=== PATIENT | female | born 1955 | race African-American/Black ===

== ENCOUNTER 2016-05-31 20:37 | Emergency (ER) | payer MEDICAID ==
--- NOTE | 2016-05-31 21:45 | ER Document Report ---
ED Medical Screen (RME) - General Stated Complaint: ABDOMINAL PAIN Notes: 60 yo female c/o abdominal pain x 3 weeks. + n/v. feels weak. no fever. no diarrhea. no previous hx/o similar pain. + hx/o HTN TRAVEL OUTSIDE OF THE [place] IN LAST 30 DAYS: No - Related Data Allergies/Adverse Reactions: No Known Allergies Allergy (Verified 05/24/15 13:51) Past Medical History - Past Medical History Cardiac Medical History: Reports: Hx Hypercholesterolemia, Hx Hypertension Pulmonary Medical History: Reports: Hx Asthma, Hx Pneumonia - Years Ago Neurological Medical History: Reports: Hx Migraine, Hx Seizures - None since 1986/No meds GI Medical History: Reports: Hx Gastroesophageal Reflux Disease Musculoskeltal Medical History: Reports Hx Arthritis, Reports Hx Musculoskeletal Deformity, Reports Hx Musculoskeletal Trauma Skin Medical History: Reports Hx MRSA Traumatic Medical History: Reports: Hx Fractures - ankle hand knee Infectious Medical History: Reports: Hx MRSA Past Surgical History: Reports: Hx Hysterectomy, Hx Orthopedic Surgery - left knee - Immunizations Immunizations up to date: Yes Hx Diphtheria, Pertussis, Tetanus Vaccination: Yes Physical Exam - Vital signs Vitals: Temp Pulse BP Pulse Ox 97.8 F 70 120/92 H 99 05/31/16 20:46 05/31/16 20:46 05/31/16 20:46 05/31/16 20:46 Course - Vital Signs Vital signs: Temp Pulse Resp BP Pulse Ox 97.8 F 70 120/92 H 99 05/31/16 20:46 05/31/16 20:46 05/31/16 20:46 05/31/16 20:46
[2016-05-31 22:26] LABS: ABSOLUTE BASOPHILS # (AUTO) 0.1 10^3/uL (0.0-0.2); ABSOLUTE EOSINOPHILS # (AUTO) 0.1 10^3/uL (0.0-0.6); ABSOLUTE LYMPHOCYTES (AUTO) 1.6 10^3/uL (0.5-4.7); ABSOLUTE MONOCYTES (AUTO) 0.5 10^3/uL (0.1-1.4); ABSOLUTE NEUT (AUTO) 2.6 10^3/uL (1.7-8.2); BASOPHILS % (AUTO) 1.1 % (0-2); HEMATOCRIT 38.5 % (36.0-47.0); HEMOGLOBIN 12.4 g/dL (12.0-15.5); HGB HCT DIFFERENCE -1.3; LYMPHOCYTES % (AUTO) 32.6 % (13-45); MEAN CORPUSCULAR HEMOGLOBIN 29.8 pg (27.0-33.4); MEAN CORPUSCULAR HGB CONC 32.1 g/dL (32.0-36.0); MEAN CORPUSCULAR VOLUME 93 fl (80-97); MONOCYTES % (AUTO) 10.3 % (3-13); RED BLOOD COUNT 4.15 10^6/uL (3.72-5.28); RED CELL DISTRIBUTION WIDTH 13.2 % (11.5-14.0); WHITE BLOOD COUNT 4.9 10^3/uL (4.0-10.5)
[2016-05-31 22:40] LABS: APPEARANCE,URINE SLIGHTLY-CLOUDY; BILIRUBIN,URINE NEGATIVE (NEGATIVE); GLUCOSE, URINE NEGATIVE (NEGATIVE); KETONES,URINE NEGATIVE (NEGATIVE); LEUKOCYTE ESTERASE,URINE SMALL (NEGATIVE); NITRITE,URINE NEGATIVE (NEGATIVE); PROTEIN,URINE NEGATIVE (NEGATIVE); URINE SPECIFIC GRAVITY 1.023; UROBILINOGEN,URINE NEGATIVE mg/dL (<2.0)
[2016-05-31 22:42] LABS: ALANINE AMINOTRANSFERASE 32 U/L (9-52); ALBUMIN 4.4 g/dL (3.5-5.0); ALKALINE PHOSPHATASE 67 U/L (38-126); ANION GAP 10 (5-19); ASPARTATE AMINO TRANSFERASE 25 U/L (14-36); BILIRUBIN,TOTAL 0.9 mg/dL (0.2-1.3); BLOOD UREA NITROGEN 24 mg/dL (7-20); CALCIUM 9.6 mg/dL (8.4-10.2); CARBON DIOXIDE 27 mmol/L (22-30); CHLORIDE 100 mmol/L (98-107); CREATININE RESULT 0.82 mg/dL (0.52-1.25); GLUCOSE 88 mg/dL (75-110); LIPASE 106.8 U/L (23-300); POTASSIUM 4.3 mmol/L (3.6-5.0); SODIUM 136.9 mmol/L (137-145); TOTAL PROTEIN 7.2 g/dL (6.3-8.2)
[2016-06-01] MEDS ORDERED: LIDOCAINE 2% VISCOUS SOLN 20 ML UDCUP PO ONE (00:38)
[2016-06-01] MEDS ORDERED: MAG HYDROX/AL HYDROX/SIMETH SUSP 30 ML UDCUP PO ONE (00:38)
[2016-06-01] MEDS ORDERED: METOCLOPRAMIDE HCL ORAL SOLN 10 MG/10 ML UDCUP PO ONE (00:38)
[2016-06-01 01:06] VITALS: BP 127/95
[2016-06-01] MEDS ORDERED: ONDANSETRON ODT 4 MG TAB (6 TAB/DSPK) PO PRN (02:49)
[2016-06-01] MEDS ORDERED: ONDANSETRON 4 MG TAB.RAPDIS PO ONE (02:49)
[2016-06-01] MEDS ORDERED: DICYCLOMINE HCL 20 MG TABLET PO ONE (02:49)
--- NOTE | 2016-06-01 02:53 | ER Document Report ---
ED GI/ - General Chief Complaint: Abdominal Pain Stated Complaint: ABDOMINAL PAIN Mode of Arrival: Ambulatory Information source: Patient Notes: Patient is a 60-year-old female who presents to the ER today for 2 weeks of abdominal pain in the middle of her abdomen that causes her to be nauseated and vomit. Patient states that she's been trying [id number] Mylanta and antacids at home which did not help. She states that she's even changed her diet from fried food to healthier foods and she is still having the pain and nausea. She states that she vomits approximately once per day. She has not seen her primary care provider about this yet. She denies any fever, chills, diarrhea, states that she's been having normal bowel movements. TRAVEL OUTSIDE OF THE [place] IN LAST 30 DAYS: No - Related Data Allergies/Adverse Reactions: No Known Allergies Allergy (Verified 05/24/15 13:51) Past Medical History - General Information source: Patient - Social History Smoking Status: Former Smoker Chew tobacco use (# tins/day): No Frequency of alcohol use: Rare Drug Abuse: None Family History: Reviewed & Not Pertinent Patient has suicidal ideation: No Patient has homicidal ideation: No - Past Medical History Cardiac Medical History: Reports: Hx Hypercholesterolemia, Hx Hypertension Pulmonary Medical History: Reports: Hx Asthma, Hx Pneumonia - Years Ago Neurological Medical History: Reports: Hx Migraine, Hx Seizures - None since 1986/No meds Renal/ Medical History: Denies: Hx Peritoneal Dialysis GI Medical History: Reports: Hx Gastroesophageal Reflux Disease Musculoskeltal Medical History: Reports Hx Arthritis, Reports Hx Musculoskeletal Deformity, Reports Hx Musculoskeletal Trauma Skin Medical History: Reports Hx MRSA Traumatic Medical History: Reports: Hx Fractures - ankle hand knee Infectious Medical History: Reports: Hx MRSA Past Surgical History: Reports: Hx Hysterectomy, Hx Orthopedic Surgery - L knee - Immunizations Immunizations up to date: Yes Hx Diphtheria, Pertussis, Tetanus Vaccination: Yes Hx Pneumococcal Vaccination: 05/07/10 Review of Systems - Review of Systems Constitutional: No symptoms reported EENT: No symptoms reported Cardiovascular: No symptoms reported Respiratory: No symptoms reported Gastrointestinal: See HPI Genitourinary: No symptoms reported Female Genitourinary: No symptoms reported Musculoskeletal: No symptoms reported Skin: No symptoms reported Hematologic/Lymphatic: No symptoms reported Neurological/Psychological: No symptoms reported Physical Exam - Vital signs Vitals: Temp Pulse BP Pulse Ox 97.8 F 70 120/92 H 99 05/31/16 20:46 05/31/16 20:46 05/31/16 20:46 05/31/16 20:46 - Notes Notes: PHYSICAL EXAMINATION: GENERAL: Well-appearing and in no acute distress. HEAD: Atraumatic, normocephalic. EYES: Pupils equal round and reactive to light, extraocular movements intact, sclera anicteric, conjunctiva are normal. NECK: Normal range of motion, supple without lymphadenopathy LUNGS: CTAB and equal. No wheezes rales or rhonchi. HEART: Regular rate and rhythm without murmurs ABDOMEN: Soft, mild epigastric, periumbilical tenderness. No guarding, no rebound BACK: no vertebral tenderness, normal ROM GI/: no CVA tenderness EXTREMITIES: Normal range of motion, no pitting edema. No cyanosis. NEUROLOGICAL: Cranial nerves grossly intact. Normal sensory/motor exams. PSYCH: Normal mood, normal affect. SKIN: Warm, Dry, normal turgor, no rashes or lesions noted Course - Re-evaluation Re-evalutation: 06/01/16 02:51 Right upper quadrant ultrasound was negative for any acute pathology. Lab work is also unremarkable today including a normal lipase and white blood cell count. When I go to check on patient she is actually eating Lays potato chips without any issues. At this time I do not know the reason exactly for her abdominal pain, however do not see anything emergent at this time and believe that she can follow-up with her primary care provider. - Vital Signs Vital signs: Temp Pulse Resp BP Pulse Ox 98.4 F 72 18 127/95 H 97 06/01/16 00:56 06/01/16 00:56 06/01/16 00:56 06/01/16 00:56 06/01/16 00:56 - Laboratory Result Diagrams: 05/31/16 21:50 05/31/16 21:50 Laboratory results interpreted by me: 05/31/16 05/31/16 21:50 21:50 Sodium 136.9 L BUN 24 H Ur Leukocyte Esterase SMALL H Discharge - Discharge Clinical Impression: Abdominal pain Qualifiers: Abdominal location: epigastric Qualified Code(s): R10.13 - Epigastric pain Nausea and vomiting Qualifiers: Vomiting type: unspecified Vomiting Intractability: non-intractable Qualified Code(s): R11.2 - Nausea with vomiting, unspecified Condition: Stable Disposition: HOME, SELF-CARE Instructions: Abdominal Pain ([facility]), Vomiting ([facility]) Additional Instructions: Return immediately for any new or worsening symptoms. Follow up with primary care provider, call tomorrow to make followup appointment. Prescriptions: Ondansetron [Zofran Odt 4 mg Tablet] 1 - 2 tab PO Q4H PRN #30 tab.rapdis PRN Reason: For Nausea/Vomiting
== END 2016-06-01 03:15 | disposition home or self-care (01) ==
LOC: ER 20:37
DX: K21.9 Gastro-esophageal reflux disease without esophagitis (principal); R10.13 Epigastric pain; R10.816 Epigastric abdominal tenderness; R10.815 Periumbilic abdominal tenderness; R11.2 Nausea with vomiting, unspecified; I10 Essential (primary) hypertension; J45.909 Unspecified asthma, uncomplicated; Z87.891 Personal history of nicotine dependence; Z86.14 Personal history of Methicillin resistant Staphylococcus aureus infection
CPT/HCPCS: 99284; 36415; 83690; 85025; 80053; 81001; 76705; J3490 ×3

== ENCOUNTER 2016-07-06 16:33 | Emergency (ER) | payer SELFPAY ==
--- NOTE | 2016-07-06 16:43 | ER Document Report ---
ED Medical Screen (RME) - General Stated Complaint: FLU LIKE SYMPTOMS Mode of Arrival: Ambulatory Information source: Patient Notes: c/o productive cough, generalized weakness, sore throat for the past 4 days. Endorses chills, diarrhea but denies fever, nausea, vomiting, chest pain or wheezing. She has tried theraflu which has not provided relief. Did get flu vaccine this year. Hx of asthma. Has neb machine at home, she has not been using. I have greeted and performed a rapid initial assessment of this patient. A comprehensive ED assessment and evaluation of the patient, analysis of test results and completion of the medical decision making process will be conducted by additional ED providers. TRAVEL OUTSIDE OF THE [place] IN LAST 30 DAYS: No - Related Data Allergies/Adverse Reactions: No Known Allergies Allergy (Verified 05/24/15 13:51) Past Medical History - Past Medical History Cardiac Medical History: Reports: Hx Hypercholesterolemia, Hx Hypertension Pulmonary Medical History: Reports: Hx Asthma, Hx Pneumonia - Years Ago Neurological Medical History: Reports: Hx Migraine, Hx Seizures - None since 1986/No meds Renal/ Medical History: Denies: Hx Peritoneal Dialysis GI Medical History: Reports: Hx Gastroesophageal Reflux Disease Musculoskeltal Medical History: Reports Hx Arthritis, Reports Hx Musculoskeletal Deformity, Reports Hx Musculoskeletal Trauma Skin Medical History: Reports Hx MRSA Traumatic Medical History: Reports: Hx Fractures - ankle hand knee Infectious Medical History: Reports: Hx MRSA Past Surgical History: Reports: Hx Hysterectomy, Hx Orthopedic Surgery - L knee - Immunizations Immunizations up to date: Yes Hx Diphtheria, Pertussis, Tetanus Vaccination: Yes Physical Exam - Vital signs Vitals: Temp Pulse Resp BP Pulse Ox 98.0 F 85 16 122/81 100 07/06/16 16:39 07/06/16 16:39 07/06/16 16:39 07/06/16 16:39 07/06/16 16:39 - Notes Notes: General: no respiratory distress, speaking in full sentences Lungs CTAB Course - Vital Signs Vital signs: Temp Pulse Resp BP Pulse Ox 98.0 F 85 16 122/81 100 07/06/16 16:39 07/06/16 16:39 07/06/16 16:39 07/06/16 16:39 07/06/16 16:39
[2016-07-06] MEDS ORDERED: TETRACAINE HCL 0.5% OPH SOLN 2 ML OS ONE (17:29)
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
[2016-07-06] MEDS ORDERED: CYCLOPENTOLATE HCL 1% OPH SOLN 2 ML OU ONE (20:16)
[2016-07-06 20:21] VITALS: BP 110/82
== END 2016-07-06 21:00 | disposition home or self-care (01) ==
LOC: ER 16:33
DX: J11.1 Influenza due to unidentified influenza virus with other respiratory manifestations (principal); H20.9 Unspecified iridocyclitis; H53.142 Visual discomfort, left eye; W50.0XXA Accidental hit or strike by another person, initial encounter; R05 Cough; J34.89 Other specified disorders of nose and nasal sinuses; R19.7 Diarrhea, unspecified; I10 Essential (primary) hypertension; R09.81 Nasal congestion; J45.909 Unspecified asthma, uncomplicated; Z87.01 Personal history of pneumonia (recurrent); Z86.14 Personal history of Methicillin resistant Staphylococcus aureus infection
CPT/HCPCS: 99283; 87070; 87880; J3490

== ENCOUNTER 2016-07-10 13:35 | Emergency (ER) | payer SELFPAY ==
--- NOTE | 2016-07-10 14:40 | ER Document Report ---
ED Medical Screen (RME) - General Stated Complaint: COUGH,DIARRHEA,VOMITING Notes: patient states 7 days ago shes had malaise, nausea with vomiting of solids only , chills and lack of appetite. Was seen on 07/06 and was d/c home. She returns today with sudden onset left chest wall pain, denies worse with cough or deep breathing. for pain she has had nyquil and acetaminophen for her pain PMH: HTN, HLD, asthma, nonsmoker -DM I have greeted and performed a rapid initial assessment of this patient. A comprehensive ED assessment and evaluation of the patient, analysis of test results and completion of the medical decision making process will be conducted by additional ED providers. TRAVEL OUTSIDE OF THE [place] IN LAST 30 DAYS: No - Related Data Allergies/Adverse Reactions: No Known Allergies Allergy (Verified 07/06/16 16:40) Past Medical History - Past Medical History Cardiac Medical History: Reports: Hx Hypercholesterolemia, Hx Hypertension Pulmonary Medical History: Reports: Hx Asthma, Hx Pneumonia - Years Ago Neurological Medical History: Reports: Hx Migraine, Hx Seizures - None since 1986/No meds Renal/ Medical History: Denies: Hx Peritoneal Dialysis GI Medical History: Reports: Hx Gastroesophageal Reflux Disease Musculoskeltal Medical History: Reports Hx Arthritis, Reports Hx Musculoskeletal Deformity, Reports Hx Musculoskeletal Trauma Skin Medical History: Reports Hx MRSA Traumatic Medical History: Reports: Hx Fractures - ankle hand knee Infectious Medical History: Reports: Hx MRSA Past Surgical History: Reports: Hx Hysterectomy, Hx Orthopedic Surgery - L knee - Immunizations Immunizations up to date: Yes Hx Diphtheria, Pertussis, Tetanus Vaccination: Yes Physical Exam - Vital signs Vitals: Temp Pulse Resp BP Pulse Ox 100.3 F 111 H 16 105/73 97 07/10/16 13:56 07/10/16 13:56 07/10/16 13:56 07/10/16 13:56 07/10/16 13:56 Course - Vital Signs Vital signs: Temp Pulse Resp BP Pulse Ox 100.3 F 111 H 16 105/73 97 07/10/16 13:56 07/10/16 13:56 07/10/16 13:56 07/10/16 13:56 07/10/16 13:56
[2016-07-10] MEDS ORDERED: ASPIRIN 81 MG TABLET, CHEWABLE PO ONE (14:41)
[2016-07-10] MEDS ORDERED: LEVOFLOXACIN 750 MG TABLET PO ONE (19:51)
--- NOTE | 2016-07-10 19:51 | ER Document Report ---
ED General - General Chief Complaint: Cough Stated Complaint: COUGH,DIARRHEA,VOMITING Time seen by provider: 19:47 Mode of Arrival: Ambulatory Information source: Patient Notes: 60-year-old female with one-week history of subjective fever chills cough productive of yellow sputum and occasional posttussive vomiting and diarrhea. She also reports 2 days of sharp left posterior chest pain with coughing or deep breathing. Patient denies earache, sore throat, anterior chest pain, abdominal pain, dysuria, hematemesis, or melena. Physical Exam: General: Alert, appears well. HEENT: Normocephalic. Atraumatic. PERRLA. Extraocular movements intact. Oropharynx clear. Neck: Supple. Non-tender. Respiratory: No respiratory distress. Mildly tachypnea. Diminished breath sounds in the left base otherwise clear to auscultation bilaterally Cardiovascular: Tachycardic and regular no murmur Abdominal: Normal Inspection. Soft, non-tender. No distension. Normal Bowel Sounds. Back: Non-tender. No deformity or step off. Extremities: Moves all four extremities. Upper extremities: Normal inspection. Non-tender. Normal color. Normal ROM. Normal temperature. Lower extremities: Normal inspection. Non-tender. No edema. Normal color. Normal ROM. Normal temperature. Neurological: Speech clear mentation normal moves all extremities well Psychological: Normal affect. Normal Mood. Skin: Warm. Dry. Normal color. TRAVEL OUTSIDE OF THE [place] IN LAST 30 DAYS: No - Related Data Allergies/Adverse Reactions: No Known Allergies Allergy (Verified 07/06/16 16:40) Past Medical History - Social History Smoking Status: Former Smoker Family History: Reviewed & Not Pertinent - Past Medical History Cardiac Medical History: Reports: Hx Hypercholesterolemia, Hx Hypertension Pulmonary Medical History: Reports: Hx Asthma, Hx Pneumonia - Years Ago Neurological Medical History: Reports: Hx Migraine, Hx Seizures - None since 1986/No meds Renal/ Medical History: Denies: Hx Peritoneal Dialysis GI Medical History: Reports: Hx Gastroesophageal Reflux Disease Musculoskeltal Medical History: Reports Hx Arthritis, Reports Hx Musculoskeletal Deformity, Reports Hx Musculoskeletal Trauma Skin Medical History: Reports Hx MRSA Traumatic Medical History: Reports: Hx Fractures - ankle hand knee Infectious Medical History: Reports: Hx MRSA Past Surgical History: Reports: Hx Hysterectomy, Hx Orthopedic Surgery - L knee - Immunizations Immunizations up to date: Yes Hx Diphtheria, Pertussis, Tetanus Vaccination: Yes Hx Pneumococcal Vaccination: 05/07/10 Review of Systems - Review of Systems Constitutional: See HPI EENT: See HPI Cardiovascular: See HPI Respiratory: See HPI Gastrointestinal: See HPI Genitourinary: denies: Burning, Dysuria Female Genitourinary: denies: Post menopausal Musculoskeletal: See HPI Hematologic/Lymphatic: denies: Swollen glands Neurological/Psychological: denies: Weakness, Numbness Physical Exam - Vital signs Vitals: Temp Pulse Resp BP Pulse Ox 100.3 F 111 H 16 105/73 97 07/10/16 13:56 07/10/16 13:56 07/10/16 13:56 07/10/16 13:56 07/10/16 13:56 Course - Re-evaluation Re-evalutation: 07/10/16 19:49 Patient has left lower lobe pneumonia. She is oxygenating well on room air and mildly tachycardic consistent with her fever. She was discharged on Levaquin. She reports a history of asthma but doesn't feel she is having an asthma exacerbation now reports she does have enough medication for her nebulizer she is in between doctors as she used to see a Dr. Crystal and will provide her with outpatient follow-up physician. She is also instructed to return to emergency Department for worse difficulty breathing or other problems - Vital Signs Vital signs: Temp Pulse Resp BP Pulse Ox 100.3 F 111 H 16 105/73 97 07/10/16 13:56 07/10/16 13:56 07/10/16 13:56 07/10/16 13:56 07/10/16 13:56 - Diagnostic Test Radiology reviewed: Image reviewed, Reports reviewed - EKG Interpretation by Me Additional EKG results interpreted by me: 07/10/16 19:49 EKG review, so shows sinus tachycardia 121 no acute changes Discharge - Discharge Clinical Impression: Pneumonia Qualifiers: Pneumonia type: due to unspecified organism Laterality: left Lung location: lower lobe of lung Qualified Code(s): J18.1 - Lobar pneumonia, unspecified organism Condition: Stable Disposition: HOME, SELF-CARE Additional Instructions: Pneumonia Your examination indicates that you have pneumonia. This is an infection of the lung tissue, usually caused by bacteria or a virus. Symptoms include cough, fever, shaking chills, chest pain, shortness of breath, and coughing up bloody sputum. Treatment for bacterial pneumonia includes rest, antibiotics for 10 to 14 days, increasing your clear liquid intake, a cool mist humidifier at your bedside, and fever medication. Often, a repeat chest X-ray is performed in a few weeks--even if you feel better--to ascertain whether the infection has completely resolved and no underlying lung problem is present. You should call the physician if you develop persistent vomiting, high fever that does not respond to fever medication, increasing shortness of breath , confusion, or lethargy. Also, failure to improve within two to three days is an indication for re-examination. Use your albuterol nebulizer every 3 hours as needed for shortness of breath Prescriptions: Levofloxacin [Levaquin 750 mg Tablet] 750 mg PO DAILY #9 tablet Referrals: CHOLO CRYSTAL MD [Primary Care Provider] - Follow up as needed TRAVIS ISSA MD [ACTIVE STAFF] - Follow up in 1 week
[2016-07-10 20:12] VITALS: BP 116/65
--- NOTE | 2016-07-10 20:48 | EKG REPORT ---
SEVERITY:- BORDERLINE ECG - SINUS TACHYCARDIA BORDERLINE T ABNORMALITIES, INFERIOR LEADS : Confirmed by: Sonya Sneed 10-Jul-2016 20:47:31
== END 2016-07-10 20:12 | disposition home or self-care (01) ==
LOC: ER 13:35
DX: J18.1 Lobar pneumonia, unspecified organism (principal); J45.909 Unspecified asthma, uncomplicated; R05 Cough; R19.7 Diarrhea, unspecified; R07.1 Chest pain on breathing; R07.89 Other chest pain; R06.82 Tachypnea, not elsewhere classified; R50.9 Fever, unspecified; R00.0 Tachycardia, unspecified; I10 Essential (primary) hypertension; Z87.891 Personal history of nicotine dependence; Z86.14 Personal history of Methicillin resistant Staphylococcus aureus infection
CPT/HCPCS: 71020; 87804; 93005; 93010; 99284

== ENCOUNTER 2017-10-30 17:07 | Emergency (ER) | payer SELFPAY ==
--- NOTE | 2017-10-30 18:46 | ER Document Report ---
ED Medical Screen (RME) - General Chief Complaint: Vaginal Pain Stated Complaint: VAGINAL PAIN Time Seen by Provider: 10/30/17 18:41 Notes: RAPID MEDICAL EVALUATION DISCLOSURE I have seen this patient as part of a Rapid Medical Evaluation and, if applicable, placed any initially appropriate orders. The patient will be seen and fully evaluated, including a full history and physical exam, by a provider ( in Main ED or Fast Track) when a room becomes available. 61-year-old female here with complaints of vaginal itching pain and burning sensation for the past few days as well as urinary frequency. She initially had some sore throat 2 weeks ago however this is improved greatly. She has switched to new hygiene products and wonders if this may be contributing. Denies any vaginal discharge dysuria fevers chills. TRAVEL OUTSIDE OF THE [place] IN LAST 30 DAYS: No - Related Data Allergies/Adverse Reactions: No Known Allergies Allergy (Verified 07/06/16 16:40) Past Medical History - Social History Chew tobacco use (# tins/day): No Frequency of alcohol use: Occasional Drug Abuse: None - Past Medical History Cardiac Medical History: Reports: Hx Hypercholesterolemia, Hx Hypertension Pulmonary Medical History: Reports: Hx Asthma, Hx Pneumonia - Years Ago Neurological Medical History: Reports: Hx Migraine, Hx Seizures - None since 1986/No meds Renal/ Medical History: Denies: Hx Peritoneal Dialysis GI Medical History: Reports: Hx Gastroesophageal Reflux Disease Musculoskeltal Medical History: Reports Hx Arthritis, Reports Hx Musculoskeletal Deformity, Reports Hx Musculoskeletal Trauma Skin Medical History: Reports Hx MRSA Traumatic Medical History: Reports: Hx Fractures - ankle hand knee Infectious Medical History: Reports: Hx MRSA Past Surgical History: Reports: Hx Hysterectomy, Hx Orthopedic Surgery - L knee - Immunizations Immunizations up to date: Yes Hx Diphtheria, Pertussis, Tetanus Vaccination: Yes Doctor's Discharge - Discharge Referrals: CHOLO CRYSTAL MD [Primary Care Provider] - Follow up as needed
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
[2017-10-30 19:55] LABS: APPEARANCE,URINE CLEAR; BILIRUBIN,URINE NEGATIVE (NEGATIVE); COLOR,URINE YELLOW; GLUCOSE, URINE NEGATIVE (NEGATIVE); KETONES,URINE TRACE mg/dL (NEGATIVE); LEUKOCYTE ESTERASE,URINE NEGATIVE (NEGATIVE); NITRITE,URINE NEGATIVE (NEGATIVE); PROTEIN,URINE NEGATIVE (NEGATIVE); URINE SPECIFIC GRAVITY 1.025; UROBILINOGEN,URINE NEGATIVE mg/dL (<2.0)
[2017-10-30 20:12] LABS: T.VAGINALIS (WET MOUNT) NO TRICHOMONAS SEEN; WBCS (WET MOUNT) FEW WBCS SEEN; YEAST (WET MOUNT) NO YEAST SEEN
[2017-10-30] MEDS ORDERED: CEFTRIAXONE INJ 250 MG VIAL IM ONE (20:16)
[2017-10-30] MEDS ORDERED: AZITHROMYCIN 1 GM SUSP PACKET PO ONE (20:16)
[2017-10-30] MEDS ORDERED: LIDOCAINE 1% INJ-PF (10 MG/ML) 30 ML SDV ONE (20:35)
[2017-10-30] MEDS ORDERED: AZITHROMYCIN 250 MG TABLET PO ONE (20:55)
[2017-10-30 21:13] VITALS: BP 127/93
[2017-10-30 21:34] LABS: CHLAM PCR NOT DETECTED (NOT DETECT); GON PCR NOT DETECTED (NOT DETECT)
== END 2017-10-30 21:13 | disposition home or self-care (01) ==
LOC: ER 17:07
DX: N72 Inflammatory disease of cervix uteri (principal); N76.0 Acute vaginitis; R10.2 Pelvic and perineal pain; E78.00 Pure hypercholesterolemia, unspecified; I10 Essential (primary) hypertension; Z86.14 Personal history of Methicillin resistant Staphylococcus aureus infection
CPT/HCPCS: 99283; 96372; 87210; 82962; 81001; 87491; 87591; J3490; J0696

== ENCOUNTER 2018-07-30 14:32 | Emergency (ER) | payer SELFPAY ==
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
[2018-07-30] MEDS ORDERED: IPRATROPIUM/ALBUTEROL 0.5-2.5 MG/3 ML AMPUL NEB ONE (16:15)
[2018-07-30 16:33] LABS: A TYPE INFLUENZA AG NEGATIVE (NEGATIVE); B INFLUENZA AG NEGATIVE (NEGATIVE)
--- NOTE | 2018-07-30 17:02 | RADIOLOGY REPORT (SQ) ---
EXAM DESCRIPTION: CHEST 2 VIEWS COMPLETED DATE/TIME: 07/30/2018 4:25 pm REASON FOR STUDY: wheezing COMPARISON: 2017 EXAM PARAMETERS: NUMBER OF VIEWS: two views TECHNIQUE: Digital Frontal and Lateral radiographic views of the chest acquired. RADIATION DOSE: NA LIMITATIONS: Positioning. FINDINGS: LUNGS AND PLEURA: No opacities, masses or pneumothorax. No pleural effusion. MEDIASTINUM AND HILAR STRUCTURES: No masses or contour abnormalities. HEART AND VASCULAR STRUCTURES: Heart normal size. No evidence for failure. BONES: No acute findings. HARDWARE: None in the chest. OTHER: No other significant finding. IMPRESSION: NO ACUTE RADIOGRAPHIC FINDING IN THE CHEST. TECHNICAL DOCUMENTATION: JOB ID: [id number] [employer]- All Rights Reserved Reading location - IP/workstation name: [email or web address]
[2018-07-30 17:19] VITALS: BP 129/88
== END 2018-07-30 17:14 | disposition home or self-care (01) ==
LOC: ER 14:32
DX: J45.901 Unspecified asthma with (acute) exacerbation (principal); R05 Cough; F17.200 Nicotine dependence, unspecified, uncomplicated; E78.00 Pure hypercholesterolemia, unspecified; I10 Essential (primary) hypertension; Z86.14 Personal history of Methicillin resistant Staphylococcus aureus infection; Z90.710 Acquired absence of both cervix and uterus
CPT/HCPCS: 94640; 99284; 87804; 71046; J7620

== ENCOUNTER 2019-03-15 21:29 | Emergency (ER) | payer OTHER ==
[2019-03-15 21:51] VITALS: BP 141/98
[2019-03-15] MEDS ORDERED: RINGERS SOLUTION,LACTATED 1,000 ML IV ONE (22:09)
[2019-03-15 22:58] LABS: ALCOHOL 111 mg/dL (NONE DETECTED); ANION GAP 11 (5-19); BLOOD UREA NITROGEN 16 mg/dL (7-20); CALCIUM 9.5 mg/dL (8.4-10.2); CARBON DIOXIDE 26 mmol/L (22-30); CHLORIDE 105 mmol/L (98-107); GLUCOSE 91 mg/dL (75-110); POTASSIUM 4.2 mmol/L (3.6-5.0)
[2019-03-15 23:27] LABS: APPEARANCE,URINE CLEAR; BILIRUBIN,URINE NEGATIVE (NEGATIVE); COLOR,URINE STRAW; GLUCOSE, URINE NEGATIVE (NEGATIVE); KETONES,URINE NEGATIVE (NEGATIVE); LEUKOCYTE ESTERASE,URINE NEGATIVE (NEGATIVE); NITRITE,URINE NEGATIVE (NEGATIVE); PROTEIN,URINE NEGATIVE (NEGATIVE); URINE SPECIFIC GRAVITY 1.008; UROBILINOGEN,URINE NEGATIVE mg/dL (<2.0)
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
[2019-03-15 23:43] LABS: URINE AMPHETAMINES SCREEN NEGATIVE; URINE BARBITURATES SCREEN NEGATIVE; URINE BENZODIAZEPINES SCREEN NEGATIVE; URINE COCAINE SCREEN UNCONFIRMED POSITIVE; URINE MARIJUANA (THC) SCREEN NEGATIVE; URINE METHADONE SCREEN NEGATIVE; URINE PHENCYCLIDINE SCREEN NEGATIVE
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
[2019-03-16] MEDS ORDERED: KETOROLAC TROMETHAMINE INJ/PF 30 MG/1 ML SDV IV ONE (00:45)
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
== END 2019-03-16 01:05 | disposition home or self-care (01) ==
LOC: ER 21:29
DX: M79.652 Pain in left thigh (principal); M25.552 Pain in left hip; V43.62XA Car passenger injured in collision with other type car in traffic accident, initial encounter; E78.00 Pure hypercholesterolemia, unspecified; I10 Essential (primary) hypertension; Z86.14 Personal history of Methicillin resistant Staphylococcus aureus infection; Z90.710 Acquired absence of both cervix and uterus
CPT/HCPCS: 99283; 96361; 96374; 36415; 80307 ×2; 80048; 81001; 73552; 73110; 70450; 71260; 72125; 74177; J1885; J7120

== ENCOUNTER 2019-03-17 14:42 | Emergency (ER) | payer OTHER ==
--- NOTE | 2019-03-17 16:59 | RADIOLOGY REPORT (SQ) ---
EXAM DESCRIPTION: CT PELVIS WITHOUT COMPLETED DATE/TIME: 03/17/2019 4:41 pm REASON FOR STUDY: lEFT HIP PAIN UNABLE TO BEAR WEIGHT COMPARISON: 03/15/2019 TECHNIQUE: CT scan of the pelvis performed without intravenous or oral contrast. Images reviewed wi th soft tissue and bone windows. Reconstructed coronal and sagittal MPR images reviewed. All images stored on PACS. All CT scanners at this facility use dose modulation, iterative reconstruction, and/or weight based d osing when appropriate to reduce radiation dose to as low as reasonably achievable (ALARA). [facility]: Dose Right [facility]: CareDose [facility]: Dose Right [facility]: Teradose 4D [facility]: Smart Guidecentral RADIATION DOSE: CT Rad equipment meets quality standard of care and radiation dose reduction techniq ues were employed. CTDIvol: 32.0 mGy. DLP: 1157 mGy-cm. mGy. LIMITATIONS: None. FINDINGS: PELVIC BONES: There is a subtle minimally displaced fracture of the anterior aspect of the of left acetabulum. This is best demonstrated on coronal reconstructions. Even in retrospect this is difficult to visualized on the prior study. VISUALIZED SPINE: Degenerative changes. HIP(S): No acute fracture or dislocation. No worrisome bone lesions. PELVIC SOFT TISSUES: No significant findings. EXTRAPELVIC SOFT TISSUES: No significant findings. OTHER: No other significant finding. IMPRESSION: Nondisplaced fracture of the anterior aspect of the left acetabulum best demonstrated on coronal reconstruction image number 55. This is seen on axial image number 84 series 2. TECHNICAL DOCUMENTATION: JOB ID: [id number] Quality ID # [id number]: Final reports with documentation of one or more dose reduction techniques (e.g., Au tomated exposure control, adjustment of the mA and/or kV according to patient size, use of iterative reconstruction technique) 2010 [employer]- All Rights Reserved Reading location - IP/workstation name: [email or web address]
[2019-03-17] MEDS ORDERED: OXYCODONE-ACETAMINOPHEN 5-325 MG TABLET PO ONE (18:02)
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
[2019-03-17 19:08] VITALS: BP 122/88
== END 2019-03-17 19:47 | disposition home or self-care (01) ==
LOC: ER 14:42
DX: S32.402A Unspecified fracture of left acetabulum, initial encounter for closed fracture (principal); M25.552 Pain in left hip; V49.40XA Driver injured in collision with unspecified motor vehicles in traffic accident, initial encounter; I10 Essential (primary) hypertension; J45.909 Unspecified asthma, uncomplicated
CPT/HCPCS: 72192; 99283

== ENCOUNTER 2019-07-20 12:02 | Emergency (ER) | payer SELFPAY ==
[2019-07-20 12:43] LABS: ABSOLUTE BASOPHILS # (AUTO) 0.1 10^3/uL (0.0-0.2); ABSOLUTE EOSINOPHILS # (AUTO) 0.1 10^3/uL (0.0-0.6); ABSOLUTE LYMPHOCYTES (AUTO) 1.5 10^3/uL (0.5-4.7); ABSOLUTE MONOCYTES (AUTO) 0.4 10^3/uL (0.1-1.4); ABSOLUTE NEUT (AUTO) 2.8 10^3/uL (1.7-8.2); BASOPHILS % (AUTO) 1.4 % (0-2); EOSINOPHILS % (AUTO) 1.3 % (0-6); HEMATOCRIT 42.1 % (36.0-47.0); HEMOGLOBIN 13.9 g/dL (12.0-15.5); LYMPHOCYTES % (AUTO) 30.5 % (13-45); MEAN CORPUSCULAR HEMOGLOBIN 30.6 pg (27.0-33.4); MEAN CORPUSCULAR VOLUME 93 fl (80-97); MONOCYTES % (AUTO) 8.9 % (3-13); PLATELET COUNT 285 10^3/uL (150-450); RED BLOOD COUNT 4.54 10^6/uL (3.72-5.28); RED CELL DISTRIBUTION WIDTH 14.3 % (11.5-14.0); SEGMENTED NEUTROPHILS % (AUTO) 57.9 % (42-78); TOTAL CELLS COUNTED % (AUTO) 100 %; WHITE BLOOD COUNT 4.8 10^3/uL (4.0-10.5)
[2019-07-20 12:47] LABS: ALBUMIN 4.3 g/dL (3.5-5.0); ALKALINE PHOSPHATASE 59 U/L (38-126); ANION GAP 8 (5-19); ASPARTATE AMINO TRANSFERASE 24 U/L (14-36); BILIRUBIN,DIRECT 0.2 mg/dL (0.0-0.4); BILIRUBIN,TOTAL 0.7 mg/dL (0.2-1.3); BLOOD UREA NITROGEN 11 mg/dL (7-20); CALCIUM 9.7 mg/dL (8.4-10.2); CARBON DIOXIDE 29 mmol/L (22-30); CHLORIDE 103 mmol/L (98-107); CREATINE KINASE 90 U/L (30-135); GLUCOSE 78 mg/dL (75-110); POTASSIUM 4.4 mmol/L (3.6-5.0); TOTAL PROTEIN 7.7 g/dL (6.3-8.2)
[2019-07-20 13:10] LABS: CREATINE KINASE MB 1.54 ng/mL (<4.55)
[2019-07-20 13:14] LABS: TROPONIN I < 0.012 ng/mL
--- NOTE | 2019-07-20 15:12 | RADIOLOGY REPORT (SQ) ---
EXAM DESCRIPTION: CERV SP 3 VIEW OR LESS COMPLETED DATE/TIME: 07/20/2019 2:59 pm REASON FOR STUDY: RIGHT UPPER EXT RADICULAR PAIN COMPARISON: None. NUMBER OF VIEWS: Three views. TECHNIQUE: AP, lateral and odontoid radiographic images acquired of the cervical spine. LIMITATIONS: None. FINDINGS: MINERALIZATION: Normal. ALIGNMENT: Anatomic. VERTEBRAE: Vertebral bodies of normal height. DISCS: Mild -moderate spondylotic changes from C4 through C7. No large osteophytes. HARDWARE: None in the spine. SOFT TISSUES: No masses or calcifications. Lung apices clear. OTHER: No other significant finding. IMPRESSION: No acute findings. Mild -moderate spondylotic changes from C4 through C7. TECHNICAL DOCUMENTATION: JOB ID: [id number] [place]-72 2010 [employer]- All Rights Reserved Reading location - IP/workstation name: [email or web address]
--- NOTE | 2019-07-20 15:12 | RADIOLOGY REPORT (SQ) ---
EXAM DESCRIPTION: CHEST SINGLE VIEW COMPLETED DATE/TIME: 07/20/2019 2:59 pm REASON FOR STUDY: CHEST PAIN COMPARISON: 07/30/2018 TECHNIQUE: Single frontal radiographic view of the chest acquired. NUMBER OF VIEWS: One view. LIMITATIONS: None. FINDINGS: LUNGS AND PLEURA: No pneumothorax. No consolidation or pleural effusion. MEDIASTINUM AND HILAR STRUCTURES: Stable. HEART AND VASCULAR STRUCTURES: Stable. BONES: No acute findings. HARDWARE: None in the chest. OTHER: No other significant finding. IMPRESSION: NO ACUTE FINDINGS. TECHNICAL DOCUMENTATION: JOB ID: [id number] [place]-72 2010 [employer] All Rights Reserved Reading location - IP/workstation name: [email or web address]
[2019-07-20] MEDS ORDERED: KETOROLAC TROMETHAMINE INJ/PF 30 MG/1 ML SDV IV ONE (15:41)
[2019-07-20] MEDS ORDERED: ACETAMINOPHEN 325 MG TABLET PO ONE (15:41)
[2019-07-20 16:23] VITALS: BP 130/98
--- NOTE | 2019-07-20 16:45 | ER Document Report ---
Entered by NELIDA LYLE SCRIBE 07/20/19 1427 Acting as scribe for:ALINA ALEXANDER MD ED General - General Chief Complaint: Chest Pain Stated Complaint: CHEST PAIN Time Seen by Provider: 07/20/19 14:12 Information source: Patient Notes: This 63 year old female patient presents to the emergency department today with complaints of chest pain that started last night. Patient states she had a asthma attack yesterday and denies wheezing. Patient states she had a cough this morning that was non-productive. Patient states there is pain in her right arm and the right side of her neck. Patient states she has lately been doing activity different thannormal, including crawling in her house and using a walker. TRAVEL OUTSIDE OF THE [place] IN LAST 30 DAYS: No - Related Data Allergies/Adverse Reactions: No Known Allergies Allergy (Verified 11/15/18 07:46) Past Medical History - General Information source: Patient - Social History Smoking Status: Current Some Day Smoker Cigarette use (# per day): Yes Family History: Reviewed & Not Pertinent Patient has suicidal ideation: No Patient has homicidal ideation: No - Past Medical History Cardiac Medical History: Reports: Hx Hypercholesterolemia, Hx Hypertension Pulmonary Medical History: Reports: Hx Asthma, Hx Pneumonia - Years Ago Neurological Medical History: Reports: Hx Migraine, Hx Seizures - None since 1986/No meds GI Medical History: Reports: Hx Gastroesophageal Reflux Disease Musculoskeletal Medical History: Reports Hx Arthritis, Reports Hx Musculoskeletal Deformity, Reports Hx Musculoskeletal Trauma Skin Medical History: Reports Hx MRSA Traumatic Medical History: Reports: Hx Fractures - ankle hand knee Infectious Medical History: Reports: Hx MRSA Past Surgical History: Reports: Hx Hysterectomy, Hx Orthopedic Surgery - L knee - Immunizations Immunizations up to date: Yes Hx Diphtheria, Pertussis, Tetanus Vaccination: Yes Hx Pneumococcal Vaccination: 05/07/10 Review of Systems - Review of Systems Constitutional: No symptoms reported EENT: No symptoms reported Cardiovascular: See HPI, Chest pain Respiratory: See HPI, Cough. denies: Wheezing Gastrointestinal: No symptoms reported Genitourinary: No symptoms reported Female Genitourinary: No symptoms reported Musculoskeletal: See HPI, Muscle pain Skin: No symptoms reported Hematologic/Lymphatic: No symptoms reported Neurological/Psychological: No symptoms reported -: Yes All other systems reviewed and negative Physical Exam - Vital signs Vitals: Resp Pulse Ox 23 H 93 07/20/19 12:13 07/20/19 12:13 - General General appearance: Appears well, Alert - HEENT Head: Normocephalic, Atraumatic Eyes: Normal Pupils: PERRL Neck: Other - Muscle spasm of the right cervical muscles on the cervical spine. - Respiratory Respiratory status: No respiratory distress Chest status: Tender - Tenderness with palpation to the right sternocostal junction. Breath sounds: Normal - Cardiovascular Rhythm: Regular Heart sounds: Normal auscultation Murmur: No - Abdominal Inspection: Normal Distension: No distension Bowel sounds: Normal - Extremities General upper extremity: Normal inspection. No: Edema General lower extremity: Normal inspection. No: Edema - Neurological Neuro grossly intact: Yes Cognition: Normal Orientation: AAOx4 - Psychological Associated symptoms: Normal affect, Normal mood - Skin Skin Temperature: Warm Skin Moisture: Dry Skin Color: Normal Course - Re-evaluation Re-evalutation: 07/20/19 15:50 Patient resting comfortably. Patient noted that blood pressure is elevated which she attributes to whenever she is in pain her blood pressure goes up. Patient has not taken blood pressure medicine in 2 years or more. Patient reports that when her pain is in better control she does not require. 07/20/19 16:15 Repeat troponin shows a flat same level at 0.012.. Patient has no evidence for any coronary artery syndrome at this time. - Vital Signs Vital signs: Temp Pulse Resp BP Pulse Ox 97.9 F 27 H 130/98 H 95 07/20/19 12:24 07/20/19 16:01 07/20/19 16:00 07/20/19 16:01 - Laboratory Result Diagrams: 07/20/19 11:40 07/20/19 11:40 Laboratory results interpreted by me: 07/20/19 11:40 RDW 14.3 H - Diagnostic Test Radiology reviewed: Image reviewed, Reports reviewed Radiology results interpreted by me: 07/20/19 15:44 Chest x-ray no acute process no cardiopulmonary disease noted. No rib fractures no pneumothorax. C-spine plain film x-ray shows no acute fracture or subluxation chronic spondylosis disease with multiple C4-7 spondylosis. - EKG Interpretation by Me Additional EKG results interpreted by me: 07/20/19 15:49 Twelve-lead EKG done today 1211 normal sinus rhythm left ventricular hypertrophy noted no acute ST changes. Discharge - Discharge Clinical Impression: Chest wall pain, Cervical spine arthritis with nerve pain Condition: Good Disposition: HOME, SELF-CARE Instructions: Chest Wall Pain ([facility]) Additional Instructions: Chest Wall Pain Your chest pain has been diagnosed as coming from the chest wall. This is often caused by straining the muscles or joints in the chest during physical activity, direct trauma, coughing, or vigorous vomiting. Persons with arthritis are especially prone to this type of pain, due to inflammation of the cartilage joints near the breast bone. Occasionally, no cause can be found. Rest from strenuous physical activity. This kind of chest pain is usually made worse by movement of the chest. Depending on the symptoms, we may prescribe medicine for pain, muscle relaxation, and antiinflammatory effects. If the pain is new, and seems to be due to muscle strain, cold packs can help. Otherwise, apply gentle warmth to the painful area for 15 minutes every hour or two. You should contact the doctor immediately if things change. Further evaluation is needed if you develop a fever or cough, if the nature of the pain changes, or if you become short of breath.Radiculopathy Radiculopathy is irritation of a nerve. Sometimes this is called "pinched nerve." The pain can be sharp and stabbing, constant and dull, or burning in nature. The pain can occur in any area of the chest, shoulders, or arms. Sometimes the pain is provoked by coughing or moving. Radiculopathy can be caused by physical pressure on a nerve, such as a herniated disc or swollen joint in the spine. It can also be caused by viral infections within the nerve or by nerve damage due to diabetes or blood vessel disease. Radicular pain is treated with antiinflammatory medicine. Injections may help resistant cases, if we can identify a single nerve that's causing the pain. Surgery is usually not necessary. If symptoms do not improve with time, you may need additional testing, such as an MRI or EMG (electromyogram). Return if there is local weakness or numbness, shortness of breath, increasing pain, or other new symptoms. Recommend tylenol 1000 mg twice daily as needed for pain. Prescriptions: Prednisone [Deltasone 20 mg Tablet] 2 tab PO DAILY 5 Days #10 tablet Lisinopril/Hydrochlorothiazide [Lisinopril-Hctz 20-12.5 mg Tab] 1 each PO DAILY #30 tablet I personally performed the services described in the documentation, reviewed and edited the documentation which was dictated to the scribe in my presence, and it accurately records my words and actions.
--- NOTE | 2019-07-21 00:31 | EKG REPORT ---
SEVERITY:- ABNORMAL ECG - SINUS RHYTHM LEFT VENTRICULAR HYPERTROPHY : Confirmed by: Sonya Sneed 21-Jul-2019 00:29:27
== END 2019-07-20 16:44 | disposition home or self-care (01) ==
LOC: ER 12:02
DX: R07.89 Other chest pain (principal); M46.92 Unspecified inflammatory spondylopathy, cervical region; R05 Cough; F17.210 Nicotine dependence, cigarettes, uncomplicated; E78.00 Pure hypercholesterolemia, unspecified; I10 Essential (primary) hypertension; Z86.14 Personal history of Methicillin resistant Staphylococcus aureus infection; Z90.710 Acquired absence of both cervix and uterus
CPT/HCPCS: 99284; 96374; 36415; 82553; 82550; 85025; 80053; 84484; 72040; 71045; 93005; 93010; J1885

== ENCOUNTER 2020-01-28 17:12 | Emergency (ER) | payer SELFPAY ==
[2020-01-28 19:25] LABS: APPEARANCE,URINE CLEAR; BILIRUBIN,URINE NEGATIVE (NEGATIVE); COLOR,URINE YELLOW; GLUCOSE, URINE NEGATIVE (NEGATIVE); KETONES,URINE NEGATIVE (NEGATIVE); LEUKOCYTE ESTERASE,URINE NEGATIVE (NEGATIVE); NITRITE,URINE NEGATIVE (NEGATIVE); PROTEIN,URINE NEGATIVE (NEGATIVE); URINE SPECIFIC GRAVITY 1.024; UROBILINOGEN,URINE NEGATIVE mg/dL (<2.0)
[2020-01-28 19:26] LABS: ABSOLUTE BASOPHILS # (AUTO) 0.1 10^3/uL (0.0-0.2); ABSOLUTE EOSINOPHILS # (AUTO) 0.1 10^3/uL (0.0-0.6); ABSOLUTE LYMPHOCYTES (AUTO) 1.6 10^3/uL (0.5-4.7); ABSOLUTE MONOCYTES (AUTO) 0.4 10^3/uL (0.1-1.4); ABSOLUTE NEUT (AUTO) 1.4 10^3/uL (1.7-8.2); BASOPHILS % (AUTO) 1.7 % (0-2); EOSINOPHILS % (AUTO) 1.5 % (0-6); HEMOGLOBIN 13.5 g/dL (12.0-15.5); LYMPHOCYTES % (AUTO) 45.7 % (13-45); MEAN CORPUSCULAR HEMOGLOBIN 30.8 pg (27.0-33.4); MEAN CORPUSCULAR VOLUME 93 fl (80-97); MONOCYTES % (AUTO) 11.3 % (3-13); PLATELET COUNT 218 10^3/uL (150-450); RED BLOOD COUNT 4.39 10^6/uL (3.72-5.28); RED CELL DISTRIBUTION WIDTH 12.9 % (11.5-14.0); SEGMENTED NEUTROPHILS % (AUTO) 39.8 % (42-78); TOTAL CELLS COUNTED % (AUTO) 100 %; WHITE BLOOD COUNT 3.5 10^3/uL (4.0-10.5)
--- NOTE | 2020-01-28 19:29 | RADIOLOGY REPORT (SQ) ---
EXAM DESCRIPTION: CT ABD/PELVIS NO ORAL OR IV IMAGES COMPLETED DATE/TIME: 01/28/2020 7:14 pm REASON FOR STUDY: left flank pain COMPARISON: 2013 TECHNIQUE: CT scan of the abdomen and pelvis performed without intravenous or oral contrast. Images reviewed with lung, soft tissue, and bone windows. Reconstructed coronal and sagittal MPR images revi ewed. All images stored on PACS. All CT scanners at this facility use dose modulation, iterative reconstruction, and/or weight based d osing when appropriate to reduce radiation dose to as low as reasonably achievable (ALARA). [facility]: Dose Right [facility]: CareDose [facility]: Dose Right [facility]: Teradose 4D [facility]: Smart POLYBONA RADIATION DOSE: CT Rad equipment meets quality standard of care and radiation dose reduction techniq ues were employed. CTDIvol: 18.0 mGy. DLP: 988 mGy-cm.mGy. LIMITATIONS: None. FINDINGS: LOWER CHEST: No significant findings. No nodules or infiltrates. NON-CONTRASTED LIVER, SPLEEN, ADRENALS: Evaluation limited by lack of IV contrast. No identified sign ificant masses. PANCREAS: No masses. No peripancreatic inflammatory changes. GALLBLADDER: No identified stones by CT criteria. No inflammatory changes to suggest cholecystitis. RIGHT KIDNEY AND URETER: No suspicious masses. Assessment limited by lack of IV contrast. No signif icant calcifications. No hydronephrosis or hydroureter. LEFT KIDNEY AND URETER: No suspicious masses. Assessment limited by lack of IV contrast. No signifi cant calcifications. No hydronephrosis or hydroureter. AORTA AND RETROPERITONEUM: No aneurysm. No retroperitoneal masses or adenopathy. BOWEL AND PERITONEAL CAVITY: Mild sigmoid diverticulosis with no associated inflammation. APPENDIX: Normal. PELVIS, BLADDER, AND ABDOMINAL WALL:The bladder is incompletely filled but otherwise unremarkable. N o pelvic mass or fluid collection. BONES: No significant findings. OTHER: No other significant finding. IMPRESSION: 1. No urinary pathology. 2. Mild diverticulosis coli. COMMENT: Quality ID # [id number]: Final reports with documentation of one or more dose reduction techniques (e.g., Automated exposure control, adjustment of the mA and/or kV according to patient size, use of iterative reconstruction technique) TECHNICAL DOCUMENTATION: JOB ID: [id number] 2010 [employer]- All Rights Reserved Reading location - IP/workstation name: [email or web address]
[2020-01-28 19:39] LABS: ALBUMIN 4.1 g/dL (3.5-5.0); ALKALINE PHOSPHATASE 58 U/L (38-126); ANION GAP 6 (5-19); ASPARTATE AMINO TRANSFERASE 23 U/L (14-36); BILIRUBIN,DIRECT 0.2 mg/dL (0.0-0.4); BILIRUBIN,TOTAL 0.8 mg/dL (0.2-1.3); BLOOD UREA NITROGEN 16 mg/dL (7-20); CALCIUM 9.3 mg/dL (8.4-10.2); CARBON DIOXIDE 28 mmol/L (22-30); CHLORIDE 107 mmol/L (98-107); GLUCOSE 97 mg/dL (75-110); POTASSIUM 4.2 mmol/L (3.6-5.0); TOTAL PROTEIN 6.9 g/dL (6.3-8.2)
--- NOTE | 2020-01-28 21:26 | ER Document Report ---
ED General - General Chief Complaint: Flank Pain Stated Complaint: BACK PAIN Time Seen by Provider: 01/28/20 21:25 TRAVEL OUTSIDE OF THE [place] IN LAST 30 DAYS: No - HPI Notes: 64-year-old female presents with back pain. Patient states she has been having left lower back pain for the past 4 days. She denies any injury. She denies previous history of back issues. She states that she has been taking 800 mg of Motrin which does ease off the pain. The pain radiates to her buttock and hip/upper thigh. She is still been ambulatory despite the pain. She states that she has had history of kidney stones in the past. She denies urinary symptoms. She also received 30 mg IV Toradol with EMS which has reduced her pain significantly. - Related Data Allergies/Adverse Reactions: No Known Allergies Allergy (Verified 01/28/20 18:21) Past Medical History - Social History Smoking Status: Current Some Day Smoker Chew tobacco use (# tins/day): No Frequency of alcohol use: Occasional Drug Abuse: None Family History: Reviewed & Not Pertinent Patient has homicidal ideation: No - Past Medical History Cardiac Medical History: Reports: Hx Hypercholesterolemia, Hx Hypertension Pulmonary Medical History: Reports: Hx Asthma, Hx Pneumonia - Years Ago Neurological Medical History: Reports: Hx Migraine, Hx Seizures - None since 1986/No meds Renal/ Medical History: Denies: Hx Peritoneal Dialysis GI Medical History: Reports: Hx Gastroesophageal Reflux Disease Musculoskeletal Medical History: Reports Hx Arthritis, Reports Hx Musculoskeletal Deformity, Reports Hx Musculoskeletal Trauma Skin Medical History: Reports Hx MRSA Traumatic Medical History: Reports: Hx Fractures - ankle hand knee Infectious Medical History: Reports: Hx MRSA Past Surgical History: Reports: Hx Hysterectomy, Hx Orthopedic Surgery - L knee - Immunizations Immunizations up to date: Yes Hx Diphtheria, Pertussis, Tetanus Vaccination: Yes Hx Pneumococcal Vaccination: 05/07/10 Review of Systems - Review of Systems Constitutional: denies: Fever EENT: No symptoms reported Cardiovascular: denies: Chest pain Respiratory: denies: Short of breath Gastrointestinal: denies: Abdominal pain Genitourinary: denies: Dysuria, Hematuria Musculoskeletal: Back pain Skin: No symptoms reported Hematologic/Lymphatic: No symptoms reported Neurological/Psychological: denies: Weakness, Numbness Physical Exam - Vital signs Vitals: Temp Pulse Resp BP Pulse Ox 98.2 F 69 16 151/87 H 98 01/28/20 17:24 01/28/20 17:24 01/28/20 17:24 01/28/20 17:24 01/28/20 17:24 - General General appearance: Appears well, Alert - HEENT Head: Normocephalic, Atraumatic Extraocular movements intact: Yes Pupils: PERRL - Respiratory Breath sounds: Normal - Cardiovascular Rhythm: Regular Heart sounds: Normal auscultation - Abdominal Inspection: Obese Distension: No distension Tenderness: Nontender - Back Back: Tender - Left lower back near iliac crest, tenderness over SI joint and sacral notch. Palpation to sacral notch re-created her symptoms. No: CVA tenderness, Vertebra tenderness - Neurological Neuro grossly intact: Yes Cognition: Normal Orientation: AAOx4 Motor strength normal: LUE, RUE, LLE, RLE Sensory: Normal - Psychological Associated symptoms: Normal affect - Skin Skin Temperature: Warm Course - Re-evaluation Re-evalutation: 64-year-old female with left lower back pain x4 days, atraumatic. On exam she is well-appearing, afebrile, hypertensive but has a history of this. She has no midline spinal tenderness. She does have tenderness to the left lower back, iliac crest and sacral notch area. Re-created the symptoms with palpating here. Based on her description of pain, suspecting sciatic pain versus other peripheral nerve compression. She is neurologically intact, has intact motor and strength to her lower extremities. I would have a low suspicion for acute spinal cord etiology at this time. She received Toradol which helped. Will try Tylenol, Robaxin and lidocaine patches. 01/28/20 22:12 Mild leukopenia, per review has a history of this and has been lower in the past. No acute anemia. Platelets within normal limits. Electrolytes within normal limits. Creatinine within normal limits. UTI does not suggest UTI. No blood in urine. CT abdomen does not reveal any kidney stones. Bones read as no significant findings. Has mild diverticulosis without associated inflammation. 01/28/20 22:58 Patient reports improvement in her symptoms. We will discharge her with multimodal pain control: Motrin, Tylenol, Robaxin and lidocaine patches. Discussed need to have close help with her primary care doctor. Return precautions given, patient stable at time of discharge. - Vital Signs Vital signs: Temp Pulse Resp BP Pulse Ox 98.5 F 57 L 18 154/96 H 98 09/23/20 21:11 01/28/20 21:11 01/28/20 21:11 01/28/20 21:11 01/28/20 21:11 - Laboratory Result Diagrams: 01/28/20 19:10 01/28/20 19:10 Laboratory results interpreted by me: 01/28/20 19:10 WBC 3.5 L Lymph % (Auto) 45.7 H Absolute Neuts (auto) 1.4 L Seg Neutrophils % 39.8 L - Diagnostic Test Radiology reviewed: Image reviewed, Reports reviewed Discharge - Discharge Clinical Impression: Low back pain radiating to left leg Condition: Stable Disposition: HOME, SELF-CARE Instructions: Sciatica ([facility]) Additional Instructions: Continue to use combination of Motrin, Tylenol, Robaxin and lidocaine patches for likely sciatica. He may purchase lidocaine patches [id number]. Can use Robaxin up to 4 times a day. Please have close follow-up with your primary care doctor. Return to the emergency department for increasing pain, numbness, weakness, or any other concerning symptoms. Prescriptions: Ibuprofen [Ibu] 800 mg PO Q8H PRN #60 tablet PRN Reason: For Pain Methocarbamol [Robaxin 500 mg Tablet] 500 mg PO QID PRN #60 tablet PRN Reason: Muscle Spasms
[2020-01-28] MEDS ORDERED: METHOCARBAMOL 500 MG TABLET PO ONE (21:39)
[2020-01-28] MEDS ORDERED: LIDOCAINE 5% (700 MG) TRANSDERMAL ADH..PATCH TP ONE (21:39)
[2020-01-28] MEDS ORDERED: ACETAMINOPHEN 325 MG TABLET PO ONE (21:39)
[2020-01-28] MEDS ORDERED: KETOROLAC TROMETHAMINE INJ/PF 30 MG/1 ML SDV IV ONE (22:50)
[2020-01-29 00:53] VITALS: BP 168/94
== END 2020-01-29 01:01 | disposition home or self-care (01) ==
LOC: ER 17:12
DX: M54.5 Low back pain (principal); K57.30 Diverticulosis of large intestine without perforation or abscess without bleeding; I10 Essential (primary) hypertension; J45.909 Unspecified asthma, uncomplicated; F17.200 Nicotine dependence, unspecified, uncomplicated
CPT/HCPCS: 99285; 96374; 36415; 83690; 85025; 80053; 81001; 74176; J1885

== ENCOUNTER 2020-01-31 21:36 | Emergency (ER) | payer SELFPAY ==
--- NOTE | 2020-01-31 22:55 | ER Document Report ---
ED Medical Screen (RME) - General Chief Complaint: Flank Pain Stated Complaint: BACK PAIN Time Seen by Provider: 01/31/20 22:49 Notes: HPI: 64-year-old female presenting again by EMS for evaluation of back and abdominal pain. Patient had presented 3 days ago to the emergency department and was evaluated for complaints of lower back pain not more on the left side. It occurred 4 days before her prior visit making this day 8. States that To radol she received at that time also made it better. States that she did have a trip and fall but did not believe she injured herself. No chest pain no shortness of breath. No difficulty with urination. Patient states the pain is now around the entire abdomen which is what prompted her to return. No fever PHYSICAL EXAMINATION: Mild generalized tenderness across the abdomen flank and musculature of the back. On review of the record she had normal lab work normal urinalysis and a normal noncontrast CT which showed diverticulosis but not diverticulitis I have greeted and performed a rapid initial assessment of this patient. A comprehensive ED assessment and evaluation of the patient, analysis of test results and completion of medical decision making process will be conducted by an additional ED providers. TRAVEL OUTSIDE OF THE [place] IN LAST 30 DAYS: No - Related Data Allergies/Adverse Reactions: No Known Allergies Allergy (Verified 01/31/20 22:49) Past Medical History - Past Medical History Cardiac Medical History: Reports: Hx Hypercholesterolemia, Hx Hypertension Pulmonary Medical History: Reports: Hx Asthma, Hx Pneumonia - Years Ago Neurological Medical History: Reports: Hx Migraine, Hx Seizures - None since 1986/No meds Renal/ Medical History: Denies: Hx Peritoneal Dialysis GI Medical History: Reports: Hx Gastroesophageal Reflux Disease Musculoskeltal Medical History: Reports Hx Arthritis, Reports Hx Musculoskeletal Deformity, Reports Hx Musculoskeletal Trauma Skin Medical History: Reports Hx MRSA Traumatic Medical History: Reports: Hx Fractures - ankle hand knee Infectious Medical History: Reports: Hx MRSA Past Surgical History: Reports: Hx Hysterectomy, Hx Orthopedic Surgery - L knee - Immunizations Immunizations up to date: Yes Hx Diphtheria, Pertussis, Tetanus Vaccination: Yes Physical Exam - Vital signs Vitals: Temp Pulse Resp BP Pulse Ox 98.2 F 64 20 166/104 H 99 01/31/20 21:58 01/31/20 21:58 01/31/20 21:58 01/31/20 21:58 01/31/20 21:58 Course - Vital Signs Vital signs: Temp Pulse Resp BP Pulse Ox 98.2 F 64 20 166/104 H 99 01/31/20 21:58 01/31/20 21:58 01/31/20 21:58 01/31/20 21:58 01/31/20 21:58
[2020-01-31 23:15] LABS: ABSOLUTE BASOPHILS # (AUTO) 0.1 10^3/uL (0.0-0.2); ABSOLUTE EOSINOPHILS # (AUTO) 0.1 10^3/uL (0.0-0.6); ABSOLUTE LYMPHOCYTES (AUTO) 1.5 10^3/uL (0.5-4.7); ABSOLUTE MONOCYTES (AUTO) 0.4 10^3/uL (0.1-1.4); ABSOLUTE NEUT (AUTO) 1.8 10^3/uL (1.7-8.2); BASOPHILS % (AUTO) 1.6 % (0-2); EOSINOPHILS % (AUTO) 1.5 % (0-6); HEMATOCRIT 40.1 % (36.0-47.0); HEMOGLOBIN 13.4 g/dL (12.0-15.5); LYMPHOCYTES % (AUTO) 39.9 % (13-45); MEAN CORPUSCULAR HEMOGLOBIN 31.4 pg (27.0-33.4); MEAN CORPUSCULAR HGB CONC 33.6 g/dL (32.0-36.0); MEAN CORPUSCULAR VOLUME 94 fl (80-97); MONOCYTES % (AUTO) 10.5 % (3-13); PLATELET COUNT 225 10^3/uL (150-450); RED BLOOD COUNT 4.28 10^6/uL (3.72-5.28); RED CELL DISTRIBUTION WIDTH 12.8 % (11.5-14.0); SEGMENTED NEUTROPHILS % (AUTO) 46.5 % (42-78); TOTAL CELLS COUNTED % (AUTO) 100 %; WHITE BLOOD COUNT 3.8 10^3/uL (4.0-10.5)
[2020-01-31 23:30] LABS: ALBUMIN 4.1 g/dL (3.5-5.0); ALKALINE PHOSPHATASE 57 U/L (38-126); ANION GAP 11 (5-19); ASPARTATE AMINO TRANSFERASE 26 U/L (14-36); BILIRUBIN,DIRECT 0.3 mg/dL (0.0-0.4); BILIRUBIN,TOTAL 0.7 mg/dL (0.2-1.3); BLOOD UREA NITROGEN 21 mg/dL (7-20); CALCIUM 9.1 mg/dL (8.4-10.2); CARBON DIOXIDE 19 mmol/L (22-30); CHLORIDE 109 mmol/L (98-107); GLUCOSE 90 mg/dL (75-110); POTASSIUM 4.3 mmol/L (3.6-5.0); TOTAL PROTEIN 6.6 g/dL (6.3-8.2)
[2020-02-01] MEDS ORDERED: DICYCLOMINE HCL INJ 20 MG/2 ML AMPULE IM ONE (01:13)
--- NOTE | 2020-02-01 01:15 | ER Document Report ---
ED GI/ - General Chief Complaint: Flank Pain Stated Complaint: BACK PAIN Time Seen by Provider: 01/31/20 22:49 Primary Care Provider: [facility] [Provider Group] - Follow up in 1 week [facility] [Provider Group] - Follow up in 1 week Notes: Patient is a 64-year-old female presents emergency department with a chief complaint of left back pain that started on January 22. She states that she was seen here in the emergency department 3 days ago and her work-up was normal. Her pain goes from her left back and radiates to her entire abdomen. She states that she had some relief with ibuprofen 800 mg. She has been taking the ibuprofen every 8 hours. Patient states that she has not been looking at her stool and does not know what color it is. Describes her pain as an aching feeling. TRAVEL OUTSIDE OF THE [place] IN LAST 30 DAYS: No - Related Data Allergies/Adverse Reactions: No Known Allergies Allergy (Verified 01/31/20 22:49) Past Medical History - Social History Smoking Status: Current Some Day Smoker Frequency of alcohol use: Social Drug Abuse: None Family History: Reviewed & Not Pertinent Patient has homicidal ideation: No - Past Medical History Cardiac Medical History: Reports: Hx Hypercholesterolemia, Hx Hypertension Pulmonary Medical History: Reports: Hx Asthma, Hx Pneumonia - Years Ago Neurological Medical History: Reports: Hx Migraine, Hx Seizures - None since 1986/No meds Renal/ Medical History: Denies: Hx Peritoneal Dialysis GI Medical History: Reports: Hx Gastroesophageal Reflux Disease Musculoskeletal Medical History: Reports Hx Arthritis, Reports Hx Mu sculoskeletal Deformity, Reports Hx Musculoskeletal Trauma Skin Medical History: Reports Hx MRSA Traumatic Medical History: Reports: Hx Fractures - ankle hand knee Infectious Medical History: Reports: Hx MRSA Past Surgical History: Reports: Hx Hysterectomy, Hx Orthopedic Surgery - L knee - Immunizations Immunizations up to date: Yes Hx Diphtheria, Pertussis, Tetanus Vaccination: Yes Hx Pneumococcal Vaccination: 05/07/10 Review of Systems - Review of Systems Notes: REVIEW OF SYSTEMS: CONSTITUTIONAL : Denies recent illness. Denies recent unintentional weight loss. Denies fever, chills, or sweats. EENT: Denies eye, ear, throat, or mouth pain, discharge, or symptoms. Denies nasal or sinus congestion. CARDIOVASCULAR: Denies chest pain. RESPIRATORY: Denies shortness of breath, cough, congestion, difficulty breathing, or wheezing. GASTROINTESTINAL: See HPI. GENITOURINARY: Denies difficulty urinating, burning, blood in urine, urgency or frequency. MUSCULOSKELETAL: Denies neck and back pain. Denies joint pain or swelling. SKIN: Denies rash, itchiness, or lesions HEMATOLOGIC : Denies easy bruising or bleeding. LYMPHATIC: Denies swollen, painful, enlarged glands. NEUROLOGICAL: Denies no numbness or tingling denies weakness. Denies headache. Denies altered mental status. Denies alteration in speech. PSYCHIATRIC: Denies stress, anxiety, alteration in sleep patterns, or depression. All other systems reviewed and negative. Physical Exam - Vital signs Vitals: Temp Pulse Resp BP Pulse Ox 98.2 F 64 20 166/104 H 99 01/31/20 21:58 01/31/20 21:58 01/31/20 21:58 01/31/20 21:58 01/31/20 21:58 - Notes Notes: PHYSICAL EXAMINATION: GENERAL: Appears well, healthy, well-nourished, no acute distress. HEAD: Normocephalic, atraumatic. EYES: PERRL, conjunctiva normal, all extraocular movements intact, sclera nonicteric ENT: Moist mucous membranes. NECK: Supple, no noticeable swelling, redness, rash. Normal range of motion. LUNGS: Equal breath sounds bilaterally and clear to auscultation. No wheezes rales or rhonchi. CARDIOVASCULAR: S1-S2, regular rate, regular rhythm. Radial pulses 2+, normal. ABDOMEN: Normoactive bowel sounds. Soft, nontender, no guarding, no rebound tenderness, and no masses palpated. EXTREMITIES: Normal strength and range of motion, no pitting or edema. No cyanosis. NEUROLOGICAL: Moves all extremities upon command. Strength 5/5 in all extremities. PSYCH: Normal mood, normal affect. SKIN: Warm, dry. No rash, lesions, ulcerations noted. Normal skin turgor. Course - Re-evaluation Re-evalutation: 02/01/20 02:00 Rectal exam done with LOU Terrazas at bedside. Occult stool was negative. 02/01/20 04:02 CT of the abdomen pelvis are unremarkable hematology is unremarkable. No leukocytosis or anemia noted. Awaiting urinalysis. 02/01/20 06:25 Urinalysis shows a small amount of leukocytes in her urine. Urine culture will be sent. At this time, the patient states that she feels better after receiving Bentyl. Will place the patient on Bentyl for abdominal cramping. Asked the patient if she is still using cocaine, as she was positive for cocaine in the end of 2018. She states that she smoked cocaine 2 days ago. Advised her to stop smoking cocaine. She is in agreement with this plan. Will refer her to [facility] and [facility] in regards to this visit. Follow-up precautions were given. Verbal discharge instructions were given to the patient. They verbalized understanding. They are stable for discharge. 02/01/20 07:11 Patient's primary nurse informed me that the patient's blood pressure was still elevated at time of discharge. Spoke with the patient in regards to her blood pressure medication. She states that she stopped taking it about a year ago. Will place her back on hydrochlorothiazide. Patient agrees to follow-up with [facility] in [facility] in regards to this visit. - Vital Signs Vital signs: Temp Pulse Resp BP Pulse Ox 98.2 F 64 20 166/104 H 99 01/31/20 21:58 01/31/20 21:58 01/31/20 21:58 01/31/20 21:58 01/31/20 21:58 - Laboratory Result Diagrams: 01/31/20 22:58 01/31/20 22:58 Laboratory results interpreted by me: 01/31/20 01/31/20 02/01/20 22:58 22:58 05:10 WBC 3.8 L Chloride 109 H Carbon Dioxide 19 L BUN 21 H Urine Ketones TRACE H Ur Leukocyte Esterase TRACE H Discharge - Discharge Clinical Impression: Left flank pain, Substance abuse Abdominal pain Qualifiers: Abdominal location: generalized Qualified Code(s): R10.84 - Generalized abdom inal pain Hypertension Qualifiers: Hypertension type: essential hypertension Qualified Code(s): I10 - Essential (primary) hypertension Condition: Stable Disposition: HOME, SELF-CARE Additional Instructions: You were seen today in the emergency department for abdominal pain. Your pain got better with Bentyl. Please also start taking Pepcid and Carafate, as you most likely have gastritis from your cocaine use. Stop smoking cocaine, as this will irritate your stomach and causing you to have more abdominal pain. Follow- up with 1 of the clinics below in regards to this visit. Please also start your blood pressure medication. Prescriptions: Dicyclomine HCl [Bentyl 20 mg Tablet] 20 mg PO QID PRN #20 tablet PRN Reason: Sucralfate [Carafate 1 gm Tablet] 1 gm PO ACHS #20 tablet Hydrochlorothiazide [Hydrodiuril 25 mg Tablet] 25 mg PO QAM #30 tablet Famotidine [Pepcid 20 mg Tablet] 20 mg PO BID #12 tablet Referrals: [facility] [Provider Group] - Follow up in 1 week [facility] [Provider Group] - Follow up in 1 week
[2020-02-01] MEDS ORDERED: NORMAL SALINE 1000 ML 1,000 ML IV ONE (01:17)
--- NOTE | 2020-02-01 03:01 | RADIOLOGY REPORT (SQ) ---
CT abdomen and pelvis with contrast on 02/01/2020 2:27 AM CLINICAL INDICATION: Left lower quadrant pain, back pain TECHNIQUE: Multiple axial images are obtained throughout the abdomen and pelvis following the administration of IV contrast, 99 mL of Omnipaque 350contrast was administered intravenously without complication. This exam was performed according to our departmental dose-optimization program, which includes automated exposure control, adjustment of the mA and/or kV according to patient size and/or use of iterative reconstruction technique. Total DLP is 1909.67 mGy*cm. COMPARISON: 01/28/2020 FINDINGS: Abdomen: The lung bases are clear. There is a tiny nonobstructing stone in the lower pole of the right kidney. Solid abdominal organs are otherwise unremarkable. There is no abdominal adenopathy. There is no free fluid or free air within the abdomen. The abdominal portion of the GI tract is unremarkable. Pelvis: Pelvic organs appear unremarkable by CT. No free fluid is noted in the pelvis. There is no pelvic adenopathy. There is mild diverticulosis. The pelvic portion of the GI tract including the appendix is otherwise unremarkable. Degenerative changes are noted in the lumbar spine. There is mild scoliosis of the spine. There is grade 1 spondylolisthesis at L4/5 secondary to degenerative facet disease. No acute bony abnormality is noted. IMPRESSION: 1. Mild diverticulosis. 2. Tiny nonobstructing right renal stone.
[2020-02-01 05:28] LABS: APPEARANCE,URINE CLEAR; BILIRUBIN,URINE NEGATIVE (NEGATIVE); COLOR,URINE STRAW; GLUCOSE, URINE NEGATIVE (NEGATIVE); KETONES,URINE TRACE mg/dL (NEGATIVE); LEUKOCYTE ESTERASE,URINE TRACE (NEGATIVE); NITRITE,URINE NEGATIVE (NEGATIVE); PROTEIN,URINE NEGATIVE (NEGATIVE); URINE SPECIFIC GRAVITY 1.048; UROBILINOGEN,URINE NEGATIVE mg/dL (<2.0)
[2020-02-01] MEDS ORDERED: DICYCLOMINE HCL 20 MG TABLET PO ONE (06:33)
[2020-02-01] MEDS ORDERED: FAMOTIDINE 20 MG TABLET PO ONE ×2 (06:33→06:45)
[2020-02-01] MEDS ORDERED: HYDROCHLOROTHIAZIDE 25 MG TABLET PO ONE (07:11)
[2020-02-01 07:25] VITALS: BP 170/114
== END 2020-02-01 07:22 | disposition home or self-care (01) ==
LOC: ER 21:36
DX: N20.0 Calculus of kidney (principal); R10.84 Generalized abdominal pain; K57.90 Diverticulosis of intestine, part unspecified, without perforation or abscess without bleeding; M54.9 Dorsalgia, unspecified; F17.200 Nicotine dependence, unspecified, uncomplicated; I10 Essential (primary) hypertension; J45.909 Unspecified asthma, uncomplicated
CPT/HCPCS: 99285; 96372; 96360; 96361; 36415; 87086; 83690; 85025; 80053; 81001; 74177; J3490; J0500; J7030